=== PATIENT | female | born 1955 | race Caucasian/White ===

== ENCOUNTER → 2017-12-28 | Outpatient (CLI) | payer BC ==
[~2017-12-28] MED LIST: ADVIL,NUPRIN,M200 MG PO; Aspirin E.C. PO; CALCIO DEL MAR500 MG PO; CELEBREX200 MG PO; CELEXA40 MG PO; COUMADIN PO; Calcium Carbonate,Ca PO; DYAZIDE, MA1 CAPSULE PO; Desyrel PO; FLEXERIL5 MG PO; LOPRESSOR25 MG PO; Lopressor PO; MULTIVITAMIN1 EAC2 PO; Maxzide 25 PO; OxyCONTIN PO; Protonix PO; Senokot S,Pericolace PO; TRAZODONE HCL50 MG PO; Theragran PO; Tylenol Regular Stre PO; ULTRAM50 MG PO; ZEGERID OTC 201 EACH PO; Zegerid PO; celeXA PO; oxyCODONE PO
== END | disposition home or self-care (01) ==
LOC: NUC 12-24 08:00
DX: M19.012 Primary osteoarthritis, left shoulder (principal); M19.011 Primary osteoarthritis, right shoulder; M19.032 Primary osteoarthritis, left wrist; M19.031 Primary osteoarthritis, right wrist; M19.042 Primary osteoarthritis, left hand; M19.041 Primary osteoarthritis, right hand; M19.072 Primary osteoarthritis, left ankle and foot; M19.071 Primary osteoarthritis, right ankle and foot; M47.895 Other spondylosis, thoracolumbar region; R93.7 Abnormal findings on diagnostic imaging of other parts of musculoskeletal system; Z96.653 Presence of artificial knee joint, bilateral
CPT/HCPCS: 78306; 78315; A9503

== ENCOUNTER 2018-01-16 08:20 | Emergency (ER) | payer BC ==
[~2018-01-16] VITALS: Ht 157.5 cm; Wt 82.5 kg
[2018-01-16 09:52] LABS: HEMATOCRIT 37.8 % (36.0-46.0); HEMOGLOBIN 13.2 G/DL (11.9-15.5); MCH 31.4 PG (29.0-34.0); MCHC 34.9 G/DL (30.0-36.0); PLATELET COUNT 183 K/uL (156-360); RBC DIS.WIDTH-SD 39.7 % (39-53); WHITE BLOOD COUNT 3.7 K/uL (4.1-10.2)
[2018-01-16 09:59] LABS: CHLORIDE 107 mEq/L (99-109)
[2018-01-16 10:00] LABS: POTASSIUM 4.4 mEq/L (3.7-5.4); SODIUM 144 mEq/L (136-147)
[2018-01-16 10:01] LABS: GLUCOSE 102 mg/dL (70-99)
[2018-01-16 10:05] LABS: CREATININE 1.1 mg/dL (0.6-1.3); GFR ESTIMATE (CALCULATED) 53 mL/min/
[2018-01-16 10:06] LABS: UREA NITROGEN (BUN) 10 mg/dL (9-23)
[2018-01-16 10:45] VITALS: BP 152/86
== END 2018-01-16 10:46 | disposition home or self-care (01) ==
LOC: EME 08:20
PROVIDERS: Emergency Medicine
DX: J02.9 Acute pharyngitis, unspecified (principal); M25.511 Pain in right shoulder; I10 Essential (primary) hypertension; K21.9 Gastro-esophageal reflux disease without esophagitis; Z96.653 Presence of artificial knee joint, bilateral; Z79.82 Long term (current) use of aspirin
CPT/HCPCS: 70360; 73030; 80048; 85027; 87651 90; 99281; 99284

== ENCOUNTER → 2018-01-27 | Outpatient (CLI) | payer BC | END | disposition home or self-care (01) | LOC: CDC 09:23 | DX: Z01.810 Encounter for preprocedural cardiovascular examination (principal); I10 Essential (primary) hypertension; I44.0 Atrioventricular block, first degree; R94.31 Abnormal electrocardiogram [ECG] [EKG] | CPT/HCPCS: 93000 ==

== ENCOUNTER 2018-02-14 20:33 | Inpatient (IN) | payer BC ==
[~2018-02-14] VITALS: Ht 157.5 cm; Wt 81.8 kg
[~2018-02-14 20:33] MED LIST changes: -DYAZIDE, MA1 CAPSULE PO; +FISH OIL 1,2001 EAC3 PO; +LO-DOSE ASPIRIN81 M1 PO; +MAXZIDE 37.5 M1 EACH PO; +MELATONIN10 M1 PO; +PROTONIX40 MG PO; +TUMS500 MG PO; +VENLAFAXINE HCL75 M3 PO; +VITAMIN B-12 51 EACH SL
[2018-02-15 06:31] VITALS: BP 148/82
[2018-02-15 11:51] VITALS: BP 147/83
[2018-02-15 19:38] VITALS: BP 164/79
[2018-02-16] VITALS (7 sets, daily range): BP systolic 153–182; BP diastolic 68–88
[2018-02-16 06:37] LABS: HEMATOCRIT 41.8 % (36.0-46.0); HEMOGLOBIN 14.6 G/DL (11.9-15.5); MCV 89.3 FL (83-99)
[2018-02-16 07:00] LABS: CHLORIDE 97 MEQ/L (99-109); CREATININE 0.8 MG/DL (0.6-1.3); GFR ESTIMATE (CALCULATED) > 59 mL/min/; GLUCOSE 119 mg/dL (70-99); SODIUM 139 MEQ/L (136-147); UREA NITROGEN (BUN) 9 mg/dL (9-23)
[2018-02-17 00:30] VITALS: BP 157/83
[2018-02-17 04:20] VITALS: BP 119/71
[2018-02-17 05:51] LABS: HEMATOCRIT 41.2 % (36.0-46.0); HEMOGLOBIN 14.3 G/DL (11.9-15.5); MCV 88.4 FL (83-99)
[2018-02-17 07:59] VITALS: BP 119/62
[2018-02-17] MEDS ORDERED: ELIQUIS2.5 MG PO (09:30)
[2018-02-17] MEDS ORDERED: OXYCODONE HCL5 MG PO (09:30)
[2018-02-17 11:58] VITALS: BP 131/78
== END 2018-02-17 18:30 | DRG 468 ==
LOC: CANRESERV 20:33 → ENRESERV 20:33 → 3WEST 02-15 05:35 → 2SOUTH 02-15 05:35 → 3WEST 02-15 11:00 → 2SOUTH 02-15 14:45 → 3WEST 02-17 18:30
PROVIDERS: Orthopaedic Surgery
DX: T84.033A Mechanical loosening of internal left knee prosthetic joint, initial encounter (principal); Y79.2 Prosthetic and other implants, materials and accessory orthopedic devices associated with adverse incidents; I10 Essential (primary) hypertension; K21.9 Gastro-esophageal reflux disease without esophagitis; F43.20 Adjustment disorder, unspecified; Z79.82 Long term (current) use of aspirin
CPT/HCPCS: 80048; 85014; 85018; 87070; 87075; 87205; C1713; C1776; J0131; J0330; J0690; J1170; J1885; J2250; J2405; J2795; J3010; S0020